=== PATIENT | male | born 1965 | race Caucasian/White ===

== ENCOUNTER → 2020-11-28 | Outpatient (CLI) | payer BC, OTHER | LOC: SJCVCIMAG 08:46 | PROVIDERS: ATTEND Internal Medicine Cardiovascular Disease | DX: I49.1 Atrial premature depolarization (principal); I49.3 Ventricular premature depolarization; I48.91 Unspecified atrial fibrillation; I47.1 Supraventricular tachycardia; F17.200 Nicotine dependence, unspecified, uncomplicated ==